=== PATIENT | female | born 1995 | race Caucasian/White ===

== ENCOUNTER 2025-05-31 12:46 | Emergency (ER) | payer OTHER, SELFPAY ==
[2025-05-31 12:48] VITALS: BP 127/71
[2025-05-31 13:12] LABS: Hematocrit 42.1 % (37.0-47.0); Hemoglobin 14.6 g/dL (12.0-16.0); Mean Corp Hgb Conc. 34.7 g/dL (33.0-37.0); Mean Corpuscular Volume 88.3 fL (81.0-99.0); Nucleated Red Blood Cells % 0 %; Platelet Count 353 10^3/uL (130-400); Red Cell Dist. Width 11.9 % (11.5-14.5)
[2025-05-31 13:26] LABS: ALT (SGPT) 14 U/L (0-35); AST (SGOT) 17 U/L (14-36); Albumin 4.5 g/dl (3.5-5.0); Alkaline Phosphatase 53 U/L (38-126); Blood Urea Nitrogen 11 mg/dl (7-17); Calcium 9.5 mg/dl (8.4-10.2); Carbon Dioxide 30 mmol/L (22-30); Chloride 103 mmol/L (98-107); Glucose 87 mg/dl (70-99); Lipase 59 U/L (23-300); Potassium 4.4 mmol/L (3.5-5.1); Sodium 138 mmol/L (135-145); Total Protein 7.6 g/dl (6.3-8.2); eGFR > 60.00
[2025-05-31 13:28] LABS: HCG, Serum Qualitative Screen Negative
--- NOTE | 2025-05-31 15:51 | ED.GENMED ---
History of Present Illness
General
Chief Complaint: Abdominal Pain
Source: patient
Exam Limitations: none
Time Seen by Provider: 05/31/25 14:52
History of Present Illness
History of Present Illness:
29-year-old female complaining of upper abdominal pain to the mid back. Has been going on intermittently 4 days. Usually worse at night. No relation to eating. Very minimal at this time. Started last evening about 12 hours ago and has persisted
but minimal. No nausea vomiting or diarrhea. Menses are normal. No chest pain shortness of breath or pleuritic pain.
Past History
Past History
ED Past Medical History: None
ED Past Surgical History: None
Social History
Tobacco: Non-smoker
Alcohol: None
Drug: None
Living: with family
Review of Systems
Review of Systems
All Other Systems: Not applicable
Constitutional: Denies fever
Respiratory: Reports no symptoms
Cardiac: Reports no symptoms
: Reports no symptoms
Phy Exam
Physical Exam
Physical Exam:
GENERAL: Alert and oriented in no apparent distress
EYE: Orbits normal.
NECK: Supple
CARDIAC: Regular rate and rhythm without any obvious murmurs.
LUNGS: Clear breath sounds,normal
ABDOMEN: Soft, no right upper quadrant tenderness. Very minimal epigastric tenderness. No rebound or guarding no mass or hernia
NEUROLOGICAL: Alert and oriented , grossly non-focal
SKIN: Warm and dry, no rash or lesion, no discoloration, skin intact.
MUSCULOSKELETAL: No edema,no deformity.Good color
PSYCH: Normal and appropriate interaction.
Course
Orders/Labs/Results
Orders:
Orders
05/31/25 12:51
Test Result ONCE
05/31/25 12:55
Complete Blood Count/With Diff Urgent
Comprehensive Metabolic Panel Urgent
HCG, Serum Qualitative Screen Urgent
Lipase Urgent
05/31/25 15:05
US Abdomen Complete/Upper Urgent
Comment:
Reason For Exam: Upper abdominal pain with radiation to back
05/31/25 18:41
Ibuprofen [Motrin] 600 mg .ROUTE .STK-MED ONE
05/31/25 18:45
Ibuprofen [Motrin] 600 mg PO NOW STA
05/31/25 12:55
05/31/25 12:55
Vital Signs
Initial and Last Documented VS:
Initial Vital Signs
Temp Pulse Resp BP Pulse Ox
98.0 F 60 20 127/71 98
05/31/25 12:48 05/31/25 12:48 05/31/25 12:48 05/31/25 12:48 05/31/25 12:48
Last Documented Vital Signs
Temp Pulse Resp BP Pulse Ox
98.0 F 60 20 127/71 98
05/31/25 12:48 05/31/25 12:48 05/31/25 12:48 05/31/25 12:48 05/31/25 15:51
*Radiology
Radiology exam reviewed: radiology read reviewed (Biliary sludge. Sludge ball in the gallbladder)
*Pulse Oximetry
SaO2: 98
Oxygen Mode of Delivery: Room air
Patient hypoxic: no
*Critical Care Note
Total Time (30-74mins, 75-104mins- exclusive of procedures): Not Applicable
Update Note
Update Note:
Patient medically stable and nontoxic. No right upper quadrant tenderness. No distress. No fever. Normal white count. Normal LFTs and lipase. Does have sludge. This clearly could be biliary colic with sludge but nothing to support an acute
cholecystitis. Stable for discharge to follow-up
Prior to discharge and standing at the desk patient did ask for some Motrin. She states she was having some pain. Again however she clinically is very nontoxic she was in no distress. Her previous exam was unremarkable. Her LFTs were normal.
Lipase was normal. Gallbladder sludge but nothing to support acute cholecystitis. I did stress to her to return with any progression or persistent symptoms. She will also follow-up closely with surgery.
ED Attending Note
-
Portions of this chart may have been created with voice recognition software.� Occasional wrong word or��sound alike� substitutions may have occurred due to the inherent limitations of voice recognition software.
Discharge Plan
Departure
Patient Disposition: Home (Routine Discharge)
Date of Disposition: 05/31/25
Time of Disposition: 17:37
Patient with high blood pressure during this ER visit?: Yes
Discharge Problem:
Upper abdominal pain, Biliary sludge, Suspect biliary colic
Instructions: Gallstones (DC), Abdominal Pain, BLOOD PRESSURE
Prescriptions:
No Action
azithromycin 250 MG tablet
250 mg PO DAILY
norethindrone ac-eth estradiol [07/09 ()] 1 TAB tablet
1 tab PO DAILY
escitalopram oxalate 10 MG tablet
10 mg PO DAILY
Referrals:
NONE,* [Family Provider, Internal Medicine]
Vega Arias MD [Active, Surgical] - Follow up in 5-7 days
Activity Restrictions/Additional Instructions:
I gave you gallstone instructions although there is no stones. Just sludge
Call the surgeon for close follow-up
Light diet
Would also try a Pepcid a day
Return sooner with increased or persistent pain fever recurrent nausea vomiting or any other concerning symptoms
Interventions
Interventions:
*Risk Screen - Suicide Last Done: 05/31/25 12:48
*Neglect/Abuse Screening Last Done: 05/31/25 12:48
*ED COVID-19 Vaccine History Last Done: 05/31/25 12:48
*ED Influenza Vaccine History Last Done: 05/31/25 12:48
[facility] Fall Risk Assessment Tool Last Done: 05/31/25 17:11
*Nursing Disposition Last Done: 05/31/25 18:52
QZ-Vmzkjp-Dbrxzjejcs Assessment Last Done: 05/31/25 16:00
Discharge Date and Time
Discharge Date/Time: 05/31/25 18:52
Print Language: ARMENIAN
[2025-05-31] MEDS: MOTRIN 600 MG PO (18:45)
== END 2025-05-31 18:52 | disposition home or self-care (01) ==
LOC: EMR 12:46
PROVIDERS: EMERGENCY PHYSICIAN Emergency Medicine
DX: R10.10 Upper abdominal pain, unspecified (principal); K82.8 Other specified diseases of gallbladder; R03.0 Elevated blood-pressure reading, without diagnosis of hypertension
CPT/HCPCS: 99284; 76700; 80053; 83690; 84703; 85025